=== PATIENT | female | born 1980 | race Caucasian/White ===

== ENCOUNTER 2016-08-07 17:31 | Emergency (ER) | payer OTHER ==
[~2016-08-07] VITALS: Ht 167.6 cm; Wt 70.8 kg
[~2016-08-07 17:31] MED LIST: ADVAIR 500-501 EACH IH; AZITHROMYC200 MG/51 PO; CLEOCIN HCL300 MG PO; DIFLUCAN150 MG PO; GARAMYCIN5 M1 OP; HYCET 7.5 MG-3473 ML PO; LIDOCAINE VISC100 M1; NICOTINE PATCH1 EAC1 TD; NORCO 5-325 TA1 EACH PO; OXYCODONE-ACET1 EACH PO; PREDNISONE 20 M20 M1 PO; PREDNISONE 20 M20 MG PO; PREDNISONE50 MG PO; PROAIR HFA8.5 GM IH; PROVENTIL HFA6.7 G1 INH; SINGULAIR PO; SYMBICORT160 MCG/4. INH; TESSALON PERLE100 MG PO; TYLENOL325 MG PO; ULTRAM 50MG TAB50 MG PO; ZPAK PO; [UNRECOGNIZED DRUG - REMARK]
[2016-08-07] MEDS ORDERED: NAPROSYN500 MG PO (17:53)
[2016-08-07 18:01] LABS: URINE BILIRUBIN NEGATIVE (Negative); URINE BLOOD NEGATIVE (Negative); URINE COLOR YELLOW; URINE GLUCOSE-RANDOM* NEGATIVE (Negative); URINE KETONES NEGATIVE (Negative); URINE NITRITE NEGATIVE (Negative); URINE PROTEIN (DIPSTICK) NEGATIVE (Negative); URINE SPECIFIC GRAVITY <= 1.005 (1.003-1.035); URINE UROBILINOGEN 0.2 E.U./dl (0.2-1.0)
== END 2016-08-07 18:13 | disposition home or self-care (01) ==
LOC: ER 17:31
PROVIDERS: Physician Assistant
DX: M54.5 Low back pain (principal); J45.909 Unspecified asthma, uncomplicated; F17.210 Nicotine dependence, cigarettes, uncomplicated; Z88.0 Allergy status to penicillin

== ENCOUNTER 2017-01-26 21:51 | Emergency (ER) | payer OTHER ==
[~2017-01-26] VITALS: Ht 167.6 cm; Wt 59.0 kg
[~2017-01-26 21:51] MED LIST changes: +NAPROSYN500 MG PO
[2017-01-26] MEDS ORDERED: NAPROSYN500 MG PO (22:58)
== END 2017-01-26 23:13 | disposition home or self-care (01) ==
LOC: ER 21:51
DX: M54.10 Radiculopathy, site unspecified (principal); M70.821 Other soft tissue disorders related to use, overuse and pressure, right upper arm; J45.909 Unspecified asthma, uncomplicated; F17.210 Nicotine dependence, cigarettes, uncomplicated; F10.99 Alcohol use, unspecified with unspecified alcohol-induced disorder; Z88.0 Allergy status to penicillin; Y93.89 Activity, other specified

== ENCOUNTER 2017-02-03 14:43 | Emergency (ER) | payer OTHER ==
[~2017-02-03] VITALS: Ht 167.6 cm; Wt 72.6 kg
[2017-02-03] MEDS ORDERED: PROAIR HFA8.5 GM INH (14:47)
== END 2017-02-03 15:35 | disposition home or self-care (01) ==
LOC: ER 14:43
DX: S80.11XA Contusion of right lower leg, initial encounter (principal); J45.909 Unspecified asthma, uncomplicated; F17.210 Nicotine dependence, cigarettes, uncomplicated; F10.99 Alcohol use, unspecified with unspecified alcohol-induced disorder; Z88.0 Allergy status to penicillin; Y04.8XXA Assault by other bodily force, initial encounter; Y93.89 Activity, other specified; Y92.89 Other specified places as the place of occurrence of the external cause; Y99.8 Other external cause status

== ENCOUNTER 2017-02-13 18:14 | Emergency (ER) | payer OTHER ==
[~2017-02-13] VITALS: Ht 167.6 cm; Wt 68.0 kg
[~2017-02-13 18:14] MED LIST changes: +PROAIR HFA8.5 GM INH
[2017-02-13] MEDS ORDERED: NORCO 5-325 TA1 EACH PO (18:24)
[2017-02-13] MEDS ORDERED: CLEOCIN HCL150 MG PO (18:24)
== END 2017-02-13 20:05 | disposition home or self-care (01) ==
LOC: ER 18:14
DX: K04.7 Periapical abscess without sinus (principal); K02.9 Dental caries, unspecified; J45.909 Unspecified asthma, uncomplicated; F17.210 Nicotine dependence, cigarettes, uncomplicated; F10.99 Alcohol use, unspecified with unspecified alcohol-induced disorder; Z88.0 Allergy status to penicillin

== ENCOUNTER 2017-10-29 16:39 | Emergency (ER) | payer OTHER ==
[~2017-10-29] VITALS: Ht 167.6 cm; Wt 63.5 kg
[~2017-10-29 16:39] MED LIST changes: +CLEOCIN HCL150 MG PO
== END 2017-10-29 17:45 | disposition home or self-care (01) ==
LOC: ER 16:39
DX: S60.561A Insect bite (nonvenomous) of right hand, initial encounter (principal); J45.909 Unspecified asthma, uncomplicated; F17.210 Nicotine dependence, cigarettes, uncomplicated; Z88.0 Allergy status to penicillin; W57.XXXA Bitten or stung by nonvenomous insect and other nonvenomous arthropods, initial encounter; Y93.89 Activity, other specified; Y92.89 Other specified places as the place of occurrence of the external cause; Y99.8 Other external cause status

== ENCOUNTER 2018-05-05 14:29 | Emergency (ER) | payer OTHER ==
[~2018-05-05] VITALS: Ht 167.6 cm; Wt 72.6 kg
[~2018-05-05 14:29] MED LIST changes: +CLARITIN10 MG PO; +KEFLEX500 M1 PO
[2018-05-05] MEDS ORDERED: CLOTRIMAZOLE 1%15 G1 TOP (15:58)
[2018-05-05 16:06] VITALS: BP 144/80
== END 2018-05-05 16:00 | disposition home or self-care (01) ==
LOC: ER 14:29
DX: R21 Rash and other nonspecific skin eruption (principal); F17.210 Nicotine dependence, cigarettes, uncomplicated; J45.909 Unspecified asthma, uncomplicated; Z88.0 Allergy status to penicillin; Z98.890 Other specified postprocedural states

== ENCOUNTER 2018-10-03 16:00 | Emergency (ER) | payer OTHER ==
[~2018-10-03] VITALS: Ht 167.6 cm; Wt 70.8 kg
[~2018-10-03 16:00] MED LIST changes: +CLOTRIMAZOLE 1%15 G1 TOP
[2018-10-03 16:58] LABS: BASOPHILS 0.3 % (0.0-2.0); EOSINOPHILS 2.6 % (0.0-3.0); HEMATOCRIT 41.8 % (37.0-47.0); HEMOGLOBIN 14.3 gm/dL (12.0-15.0); MCH 31.5 pg (26.0-34.0); MCHC 34.1 g/dL (28.0-37.0); MCV 92.4 fL (80.0-100.0); MONOCYTES 7.1 % (1.0-8.0); PLATELET COUNT 221 thou/uL (150-400); RBC 4.52 mil/uL (4.20-5.00); RDW 12.9 % (10.5-14.5); WBC 9.2 thou/uL (4.0-11.0)
[2018-10-03 17:14] VITALS: BP 134/70
[2018-10-03 17:14] LABS: CALCIUM 9.2 mg/dL (8.5-10.1); CREATININE 0.7 mg/dL (0.6-1.0); POTASSIUM 3.4 mmol/L (3.5-5.1)
[2018-10-03 17:18] LABS: PROTIME 10.1 Seconds (9.3-11.4)
[2018-10-03 17:20] LABS: TOTAL BILIRUBIN 0.7 mg/dL (<0.1-1.0); TOTAL PROTEIN 7.6 g/dL (6.4-8.2)
[2018-10-03] MEDS ORDERED: NORCO 5-325 TA1 EACH PO (17:48)
[2018-10-03] MEDS ORDERED: KEFLEX500 M1 PO (17:48)
== END 2018-10-03 18:01 | disposition home or self-care (01) ==
LOC: ER 16:00
PROVIDERS: Physician Assistant
DX: S80.862A Insect bite (nonvenomous), left lower leg, initial encounter (principal); F17.210 Nicotine dependence, cigarettes, uncomplicated; J45.909 Unspecified asthma, uncomplicated; Z88.0 Allergy status to penicillin; Z98.890 Other specified postprocedural states; W57.XXXA Bitten or stung by nonvenomous insect and other nonvenomous arthropods, initial encounter; Y92.89 Other specified places as the place of occurrence of the external cause; Y93.89 Activity, other specified; Y99.8 Other external cause status

== ENCOUNTER 2018-12-08 20:39 | Emergency (ER) | payer OTHER ==
[~2018-12-08] VITALS: Ht 167.6 cm; Wt 68.0 kg
[2018-12-08 20:55] LABS: URINE BILIRUBIN NEGATIVE (Negative); URINE BLOOD NEGATIVE (Negative); URINE CLARITY CLEAR; URINE COLOR YELLOW; URINE GLUCOSE-RANDOM* NEGATIVE (Negative); URINE KETONES NEGATIVE (Negative); URINE LEUKOCYTES-REFLEX NEGATIVE (Negative); URINE NITRITE-REFLEX NEGATIVE (Negative); URINE PROTEIN (DIPSTICK) NEGATIVE (Negative); URINE SPECIFIC GRAVITY <= 1.005 (1.005-1.035); URINE UROBILINOGEN 0.2 E.U./dl (0.2-1.0)
[2018-12-08] MEDS ORDERED: SYMBICORT160 MCG/4. INH (21:31)
[2018-12-08] MEDS ORDERED: PROAIR HFA8.5 GM INH (21:31)
[2018-12-08] MEDS ORDERED: KEFLEX500 M1 PO (22:01)
[2018-12-08] MEDS ORDERED: PREDNISONE 20 M20 MG PO (22:01)
[2018-12-08 22:32] VITALS: BP 103/50
== END 2018-12-08 22:37 | disposition home or self-care (01) ==
LOC: ER 20:39
PROVIDERS: Emergency Medicine
DX: R30.0 Dysuria (principal); R06.02 Shortness of breath; F17.210 Nicotine dependence, cigarettes, uncomplicated; J45.909 Unspecified asthma, uncomplicated; Z98.890 Other specified postprocedural states; Z88.0 Allergy status to penicillin

== ENCOUNTER 2020-05-22 02:41 | Emergency (ER) | payer OTHER ==
[~2020-05-22] VITALS: Ht 167.6 cm; Wt 71.7 kg
[2020-05-22 03:42] LABS: ABSOLUTE NEUTROPHILS 3.4 thou/uL (1.4-8.2); BASOPHILS 0.5 % (0.0-2.0); EOSINOPHILS 1.8 % (0.0-3.0); HEMATOCRIT 43.7 % (37.0-47.0); HEMOGLOBIN 14.5 gm/dL (12.0-15.0); LYMPHOCYTES 48.1 % (24.0-44.0); MCH 31.6 pg (26.0-34.0); MCHC 33.1 g/dL (28.0-37.0); MCV 95.2 fL (80.0-100.0); MONOCYTES 5.6 % (1.0-8.0); PLATELET COUNT 217 thou/uL (150-400); RDW 13.5 % (10.5-14.5); WBC 7.8 thou/uL (4.0-11.0)
[2020-05-22 03:46] LABS: CALCIUM 8.9 mg/dL (8.5-10.1); CREATININE 0.6 mg/dL (0.6-1.0); POTASSIUM 3.7 mmol/L (3.5-5.1)
[2020-05-22 03:52] LABS: ALBUMIN 4.2 g/dL (3.4-5.0); TOTAL BILIRUBIN 0.3 mg/dL (0.2-1.0)
[2020-05-22 05:24] VITALS: BP 128/65
== END 2020-05-22 05:32 | disposition home or self-care (01) ==
LOC: ER 02:41
PROVIDERS: Emergency Medicine
DX: R10.33 Periumbilical pain (principal); Z20.828 Contact with and (suspected) exposure to other viral communicable diseases; J45.909 Unspecified asthma, uncomplicated; F17.210 Nicotine dependence, cigarettes, uncomplicated; Z88.0 Allergy status to penicillin; Z79.899 Other long term (current) drug therapy

== ENCOUNTER 2020-10-08 18:00 | Emergency (ER) | payer OTHER ==
[~2020-10-08] VITALS: Ht 167.6 cm; Wt 71.7 kg
[2020-10-08] MEDS ORDERED: CEPHALEXIN500 MG PO (19:56)
[2020-10-08 20:06] VITALS: BP 110/75
== END 2020-10-08 20:07 | disposition home or self-care (01) ==
LOC: ER 18:00
DX: S71.131A Puncture wound without foreign body, right thigh, initial encounter (principal); J45.909 Unspecified asthma, uncomplicated; F10.10 Alcohol abuse, uncomplicated; F17.210 Nicotine dependence, cigarettes, uncomplicated; Z98.51 Tubal ligation status; Z88.0 Allergy status to penicillin; W22.8XXA Striking against or struck by other objects, initial encounter; Y93.89 Activity, other specified; Y92.89 Other specified places as the place of occurrence of the external cause; Y99.0 Civilian activity done for income or pay

== ENCOUNTER 2020-12-03 19:30 | Emergency (ER) | payer OTHER ==
[~2020-12-03] VITALS: Ht 167.6 cm; Wt 72.6 kg
[~2020-12-03 19:30] MED LIST changes: +CEPHALEXIN500 MG PO
[2020-12-03 20:32] VITALS: BP 127/76
[2020-12-03] MEDS ORDERED: MEDROLDOSEPACK PO (21:35)
== END 2020-12-03 22:00 | disposition home or self-care (01) ==
LOC: ER 19:30
DX: M77.11 Lateral epicondylitis, right elbow (principal); J45.909 Unspecified asthma, uncomplicated; F17.210 Nicotine dependence, cigarettes, uncomplicated; Z79.899 Other long term (current) drug therapy; Z79.51 Long term (current) use of inhaled steroids; Z88.0 Allergy status to penicillin

== ENCOUNTER 2021-07-02 18:45 | Emergency (ER) | payer OTHER ==
[~2021-07-02] VITALS: Ht 167.6 cm; Wt 70.8 kg
[~2021-07-02 18:45] MED LIST changes: +MEDROLDOSEPACK PO
[2021-07-02 19:56] LABS: ABSOLUTE NEUTROPHILS 3.6 thou/uL (1.4-8.2); BASOPHILS 1.2 % (0.0-2.0); EOSINOPHILS 1.9 % (0.0-3.0); HEMATOCRIT 41.9 % (37.0-47.0); HEMOGLOBIN 14.3 gm/dL (12.0-15.0); LYMPHOCYTES 44.6 % (24.0-44.0); MCH 32.1 pg (26.0-34.0); MCHC 34.1 g/dL (28.0-37.0); MCV 94.3 fL (80.0-100.0); MONOCYTES 6.9 % (1.0-8.0); PLATELET COUNT 220 thou/uL (150-400); POLYS 45.4 % (36.0-66.0); RBC 4.45 mil/uL (4.20-5.00); WBC 7.9 thou/uL (4.0-11.0)
[2021-07-02 19:57] LABS: URINE BILIRUBIN NEGATIVE (Negative); URINE BLOOD NEGATIVE (Negative); URINE CLARITY CLEAR; URINE COLOR YELLOW; URINE GLUCOSE-RANDOM* NEGATIVE (Negative); URINE KETONES NEGATIVE (Negative); URINE LEUKOCYTES-REFLEX NEGATIVE (Negative); URINE NITRITE-REFLEX NEGATIVE (Negative); URINE PROTEIN (DIPSTICK) NEGATIVE (Negative); URINE SPECIFIC GRAVITY <= 1.005 (1.005-1.035); URINE UROBILINOGEN 0.2 E.U./dl (0.2-1.0)
[2021-07-02 20:04] LABS: CALCIUM 8.9 mg/dL (8.5-10.1); CREATININE 0.5 mg/dL (0.6-1.0); POTASSIUM 3.6 mmol/L (3.5-5.1)
[2021-07-02 20:13] LABS: ALBUMIN 3.6 g/dL (3.4-5.0); TOTAL BILIRUBIN 0.3 mg/dL (0.2-1.0); TOTAL PROTEIN 7.2 g/dL (6.4-8.2)
[2021-07-02] MEDS ORDERED: MECLIZINE HCL25 M1 PO (20:44)
[2021-07-02 20:50] VITALS: BP 124/67
--- NOTE | 2021-07-03 11:08 | EKG ---
[address] [address] ELECTROCARDIOGRAM REPORT Name: ROCKY ROBISON Room #: DEP [facility]#: [id number] Admission: 07/02/21 Attend Phys: Discharge: 07/02/21 Date of : 82 Report #: [id number] [facility] ED Test Date: 2021-07-02 Test Time: 19:52:35 Pat Name: ROCKY ROBISON Department: Room: Gender: F Sales Representative Publications: bindu luna : 1980 Requested By: Dona Fermin Order Number: [id number] MD: Ezequiel Reynolds Measurements Intervals [place] Rate: 66 P: 31 TN: 136 QRS: 61 QRSD: 98 T: 41 QT: 399 QTc: 418 Interpretive Statements Sinus rhythm Normal tracing Compared to ECG 08/22/2015 11:10:10 No significant changes Electronically Signed On 07-03-2021 11:08:04 [employer] by Ezequiel Reynolds [email or web address] <ELECTRONICALLY SIGNED> By: Ezequiel Reynolds MD, LOCATED WITHIN [facility] 07/03/21 1108 51 51 Ezequiel Reynolds MD, FACC /EPI
== END 2021-07-02 21:00 | disposition home or self-care (01) ==
LOC: ER 18:45
PROVIDERS: Nurse Practitioner
DX: R42 Dizziness and giddiness (principal)